=== PATIENT | male | born 1955 | race African-American/Black ===

== ENCOUNTER 2020-10-10 05:03 | Inpatient (IN) | payer MEDICARE, MEDICAID ==
[2020-10-10] MEDS ORDERED: Aspirin 81 mg Enteric Coated Tablet PO SCH (06:00)
[2020-10-10] MEDS: Lactated Ringer's 1,000 ML IV SCH ×3 (06:23→21:17)
[2020-10-10 06:37] LABS: #Neutrophils 12.5 10x3/uL (1.5-8.4); %Basophils 0.1 % (0.0-2.0); %Eosinophils 0.1 % (0.0-6.0); %Lymphocytes 12.3 % (18.0-47.0); %Monocytes 6.4 % (0.0-10.0); %Neutrophils 80.7 % (40.0-75.0); Hemoglobin 12.2 g/dL (13.5-17.5); Mean Corpuscular HGB CONC 31.4 g/dL (32.0-36.0); Mean Corpuscular Hemoglobin 27.9 pg (27.0-33.0); Mean Corpuscular Volume 88.8 fl (81.2-95.1); Mean Platelet Volume 9.1 fl (7.4-10.4); Platelet Count 337 10x3/uL (150-450); RBC Distribution Width 13.3 % (11.5-14.5); Red Blood Cell (RBC) Count 4.38 10x6/uL (4.32-5.72); White Blood Cell (WBC) Count 15.6 10x3/uL (3.5-10.5)
[2020-10-10 06:53] LABS: Anion Gap 17 mmol/L (10-20); BUN (Urea Nitrogen) 19 mg/dL (8.4-25.7); Calc. Creatinine Clearance 100 mL/min (70-130); Calcium 8.5 mg/dL (7.8-10.44); Carbon Dioxide 25 mmol/L (23-31); Chloride 104 mmol/L (98-107); Glucose 95 mg/dL (80-115); Magnesium 1.5 mg/dL (1.6-2.6); Potassium 4.4 mmol/L (3.5-5.1); Sodium 142 mmol/L (136-145)
[2020-10-10 09:24] LABS: Lactic Acid 2.3 mmol/L (0.5-2.2)
[2020-10-10] MEDS: Famotidine/PF 20 mg/2ml Vial SLOW IVP SCH ×2 (10:09→20:41)
[2020-10-10] MEDS: Famotidine 20 MG TAB PO SCH ×2 (10:09→20:33)
[2020-10-10] MEDS: Losartan 25 MG TAB PO SCH (10:09)
[2020-10-10] MEDS: Amlodipine 10 MG TAB PO SCH (10:09)
[2020-10-10] MEDS: Enoxaparin Sodium 40 MG/0.4 ML SYRINGE SC SCH (10:09)
[2020-10-10] MEDS: Docusate Sodium 100 MG/10 ML UDCUP PO SCH ×2 (10:09→20:36)
[2020-10-10] MEDS: Clopidogrel Bisulfate 75 MG TAB PO SCH (10:09)
[2020-10-10] MEDS: Potassium Chloride 10 MEQ TAB PO SCH ×2 (10:09→17:20)
[2020-10-10] MEDS: Baclofen 10 MG TAB PO SCH ×3 (10:09→20:32)
[2020-10-10] MEDS: Oxybutynin 5 MG TAB PO SCH (10:10)
[2020-10-10] MEDS: Multivit, Therapeutic 1 TAB PO SCH (10:10)
[2020-10-10 12:42] LABS: Bilirubin Neg (Negative); Blood, Urine 150 (Negative); Clarity Cloudy (Clear); Glucose, Urine (Dipstick) Normal (Negative); Ketone, Urine Negative (Negative); Leukocyte 500 (Negative); Nitrite Negative (Negative); Protein, Urine (Dipstick) 30 mg/dl (Neg-Trace); Urobilinogen Normal mg/dL (Less than 2)
[2020-10-10 13:31] LABS: WBC/HPF 21-50 HPF (0-3)
[2020-10-10 13:33] LABS: Bacteria/HPF 3+ HPF (None Seen); Squamous Epithelial None Seen HPF (0-3)
[2020-10-10 13:36] LABS: Triple Phosphate Crystal 2+ HPF (None Seen)
[2020-10-10 13:40] LABS: Urine Culture Reflex Yes Yes
[2020-10-10] MEDS ORDERED: Cefepime 2 GM VIAL ONE (14:10)
[2020-10-10] MEDS: Cefepime 2 GM in Sodium Chloride 0.9% 100 ML IVPB SCH ×2 (14:12→23:10)
[2020-10-10] MEDS: VANCOMYCIN 1.25 GM/250 ML BAG 1.25 GM in Premix Bag 1 BAG IVPB SCH (17:00)
[2020-10-10] MEDS: Atorvastatin Calcium 40 MG TAB PO SCH (20:32)
[2020-10-10] MEDS: Latanoprost 0.005% Ophth Soln 2.5 ml Bottle EA EYE SCH (20:33)
[2020-10-10] MEDS ORDERED: FLU VACC QS2020-21(65YR UP)/PF 240 MCG/0.7 ML SYRINGE IM ONE (21:00)
[2020-10-10 21:27] LABS: Lactic Acid 1.1 mmol/L (0.5-2.2)
[2020-10-10] MEDS: Acetaminophen 325 MG TAB PO PRN (22:19)
[2020-10-11 01:23] LABS: Lactic Acid 0.9 mmol/L (0.5-2.2)
[2020-10-11] MEDS: VANCOMYCIN 1.25 GM/250 ML BAG 1.25 GM in Premix Bag 1 BAG IVPB SCH ×2 (03:32→18:06)
[2020-10-11] MEDS: Lactated Ringer's 1,000 ML IV SCH ×2 (03:33→15:12)
[2020-10-11 05:35] LABS: Lactic Acid 0.8 mmol/L (0.5-2.2)
[2020-10-11] MEDS: Cefepime 2 GM in Sodium Chloride 0.9% 100 ML IVPB SCH ×3 (06:41→22:43)
[2020-10-11 08:36] LABS: #Eosinphils 0.4 10x3/uL (0.0-0.5); #Neutrophils 6.7 10x3/uL (1.5-8.4); %Basophils 0.1 % (0.0-2.0); %Eosinophils 3.7 % (0.0-6.0); %Lymphocytes 30.2 % (18.0-47.0); %Monocytes 8.7 % (0.0-10.0); Hemoglobin 10.7 g/dL (13.5-17.5); Mean Corpuscular HGB CONC 31.5 g/dL (32.0-36.0); Mean Corpuscular Hemoglobin 28.6 pg (27.0-33.0); Mean Corpuscular Volume 90.9 fl (81.2-95.1); Mean Platelet Volume 8.9 fl (7.4-10.4); Platelet Count 231 10x3/uL (150-450); RBC Distribution Width 13.7 % (11.5-14.5); Red Blood Cell (RBC) Count 3.74 10x6/uL (4.32-5.72); White Blood Cell (WBC) Count 11.7 10x3/uL (3.5-10.5)
[2020-10-11 08:44] LABS: Anion Gap 11 mmol/L (10-20); BUN (Urea Nitrogen) 16 mg/dL (8.4-25.7); Calc. Creatinine Clearance 108 mL/min (70-130); Calcium 8.2 mg/dL (7.8-10.44); Carbon Dioxide 25 mmol/L (23-31); Chloride 108 mmol/L (98-107); Glucose 89 mg/dL (80-115); Magnesium 1.5 mg/dL (1.6-2.6); Phosphorus 2.1 mg/dL (2.3-4.7); Potassium 3.9 mmol/L (3.5-5.1); Sodium 140 mmol/L (136-145)
[2020-10-11 09:19] LABS: Lactic Acid 0.9 mmol/L (0.5-2.2)
[2020-10-11] MEDS: Clopidogrel Bisulfate 75 MG TAB PO SCH (09:48)
[2020-10-11] MEDS: Oxybutynin 5 MG TAB PO SCH (09:48)
[2020-10-11] MEDS: Baclofen 10 MG TAB PO SCH ×3 (09:48→21:42)
[2020-10-11] MEDS: Potassium Chloride 10 MEQ TAB PO SCH ×2 (09:48→18:06)
[2020-10-11] MEDS: Famotidine 20 MG TAB PO SCH ×2 (09:48→21:42)
[2020-10-11] MEDS: Docusate Sodium 100 MG/10 ML UDCUP PO SCH ×2 (09:49→22:43)
[2020-10-11] MEDS: Amlodipine 10 MG TAB PO SCH (09:49)
[2020-10-11] MEDS: Multivit, Therapeutic 1 TAB PO SCH (09:49)
[2020-10-11] MEDS: Losartan 25 MG TAB PO SCH (09:49)
[2020-10-11] MEDS: Famotidine/PF 20 mg/2ml Vial SLOW IVP SCH ×2 (09:50→22:43)
[2020-10-11] MEDS: Enoxaparin Sodium 40 MG/0.4 ML SYRINGE SC SCH (09:50)
[2020-10-11] MEDS ORDERED: Magnesium 2 GM/50 ML 2 GM in Premix Bag 1 BAG IVPB SCH (14:30)
[2020-10-11] MEDS ORDERED: Potassium Phosphate 30 MMOL in Sodium Chloride 0.9% 250 ML 250 ML IVPB SCH (15:00)
[2020-10-11 15:21] LABS: Vancomycin, Trough 17.5 ug/mL
[2020-10-11] MEDS: Atorvastatin Calcium 40 MG TAB PO SCH (21:42)
[2020-10-11] MEDS: Latanoprost 0.005% Ophth Soln 2.5 ml Bottle EA EYE SCH (22:42)
[2020-10-12] MEDS: Lactated Ringer's 1,000 ML IV SCH ×3 (03:49→14:36)
[2020-10-12] MEDS: VANCOMYCIN 1.25 GM/250 ML BAG 1.25 GM in Premix Bag 1 BAG IVPB SCH ×2 (03:53→16:23)
[2020-10-12] MEDS: Cefepime 2 GM in Sodium Chloride 0.9% 100 ML IVPB SCH ×2 (06:50→15:23)
[2020-10-12] MEDS: Losartan 25 MG TAB PO SCH (09:35)
[2020-10-12] MEDS: Amlodipine 10 MG TAB PO SCH (09:35)
[2020-10-12] MEDS: Famotidine/PF 20 mg/2ml Vial SLOW IVP SCH ×2 (09:35→18:34)
[2020-10-12] MEDS: Docusate Sodium 100 MG/10 ML UDCUP PO SCH ×2 (09:35→21:52)
[2020-10-12] MEDS: Multivit, Therapeutic 1 TAB PO SCH (09:35)
[2020-10-12] MEDS: Potassium Chloride 10 MEQ TAB PO SCH ×2 (09:35→16:23)
[2020-10-12] MEDS: Baclofen 10 MG TAB PO SCH ×3 (09:35→21:52)
[2020-10-12] MEDS: Famotidine 20 MG TAB PO SCH ×2 (09:36→21:53)
[2020-10-12] MEDS: Enoxaparin Sodium 40 MG/0.4 ML SYRINGE SC SCH (09:36)
[2020-10-12] MEDS: Oxybutynin 5 MG TAB PO SCH (09:36)
[2020-10-12] MEDS: Clopidogrel Bisulfate 75 MG TAB PO SCH (09:36)
[2020-10-12] MEDS: Atorvastatin Calcium 40 MG TAB PO SCH (21:52)
[2020-10-12] MEDS: Latanoprost 0.005% Ophth Soln 2.5 ml Bottle EA EYE SCH (21:52)
[2020-10-13] MEDS: Famotidine/PF 20 mg/2ml Vial SLOW IVP SCH ×2 (01:36→09:55)
[2020-10-13 03:31] LABS: #Eosinphils 0.4 10x3/uL (0.0-0.5); #Monocytes 0.8 10x3/uL (0.0-1.1); #Neutrophils 6.1 10x3/uL (1.5-8.4); %Basophils 0.3 % (0.0-2.0); %Lymphocytes 31.1 % (18.0-47.0); %Monocytes 7.1 % (0.0-10.0); %Neutrophils 57.2 % (40.0-75.0); Hemoglobin 10.7 g/dL (13.5-17.5); Mean Corpuscular HGB CONC 31.9 g/dL (32.0-36.0); Mean Corpuscular Hemoglobin 28.1 pg (27.0-33.0); Mean Corpuscular Volume 87.9 fl (81.2-95.1); Mean Platelet Volume 9.2 fl (7.4-10.4); Platelet Count 262 10x3/uL (150-450); RBC Distribution Width 13.1 % (11.5-14.5); Red Blood Cell (RBC) Count 3.81 10x6/uL (4.32-5.72); White Blood Cell (WBC) Count 10.6 10x3/uL (3.5-10.5)
[2020-10-13 03:35] LABS: Vancomycin, Trough 20.6 ug/mL
[2020-10-13 03:38] LABS: ALT (SGPT) 10 U/L (8-55); AST (SGOT) 11 U/L (5-34); Albumin 3.6 g/dL (3.4-4.8); Alkaline Phosphatase 63 U/L (40-110); Anion Gap 12 mmol/L (10-20); BUN (Urea Nitrogen) 10 mg/dL (8.4-25.7); Bilirubin, Total 0.4 mg/dL (0.2-1.2); Calc. Creatinine Clearance 124 mL/min (70-130); Calcium 8.8 mg/dL (7.8-10.44); Carbon Dioxide 25 mmol/L (23-31); Chloride 107 mmol/L (98-107); Globulin 3.3 g/dL (2.4-3.5); Glucose 92 mg/dL (80-115); Magnesium 1.7 mg/dL (1.6-2.6); Potassium 4.2 mmol/L (3.5-5.1); Protein, Total 6.9 g/dL (5.8-8.1); Sodium 140 mmol/L (136-145)
[2020-10-13] MEDS: Cefepime 2 GM in Sodium Chloride 0.9% 100 ML IVPB SCH ×3 (04:45→12:39)
[2020-10-13] MEDS: VANCOMYCIN 1.25 GM/250 ML BAG 1.25 GM in Premix Bag 1 BAG IVPB SCH (04:52)
[2020-10-13] MEDS: Lactated Ringer's 1,000 ML IV SCH ×4 (06:14→17:02)
[2020-10-13] MEDS: Multivit, Therapeutic 1 TAB PO SCH (09:44)
[2020-10-13] MEDS: Baclofen 10 MG TAB PO SCH ×3 (09:44→21:21)
[2020-10-13] MEDS: Potassium Chloride 10 MEQ TAB PO SCH ×2 (09:44→18:13)
[2020-10-13] MEDS: Oxybutynin 5 MG TAB PO SCH (09:44)
[2020-10-13] MEDS: Famotidine 20 MG TAB PO SCH ×2 (09:45→21:21)
[2020-10-13] MEDS: Enoxaparin Sodium 40 MG/0.4 ML SYRINGE SC SCH (09:54)
[2020-10-13] MEDS: Clopidogrel Bisulfate 75 MG TAB PO SCH (09:54)
[2020-10-13] MEDS: Docusate Sodium 100 MG/10 ML UDCUP PO SCH ×2 (10:11→21:24)
[2020-10-13] MEDS: Amlodipine 10 MG TAB PO SCH (13:02)
[2020-10-13] MEDS: Losartan 25 MG TAB PO SCH (13:02)
[2020-10-13] MEDS: Vancomycin HCl 1 GM in Sodium Chloride 0.9% 250 ML 250 ML IVPB SCH (17:02)
[2020-10-13] MEDS: Atorvastatin Calcium 40 MG TAB PO SCH (21:20)
[2020-10-13] MEDS: Apixaban 5 MG TAB PO SCH (21:21)
[2020-10-13] MEDS: Metoprolol Tartrate 25 MG TAB PO SCH (21:23)
[2020-10-13] MEDS: Latanoprost 0.005% Ophth Soln 2.5 ml Bottle EA EYE SCH (21:24)
[2020-10-14] MEDS: Famotidine/PF 20 mg/2ml Vial SLOW IVP SCH ×3 (00:54→20:51)
[2020-10-14] MEDS: Cefepime 2 GM in Sodium Chloride 0.9% 100 ML IVPB SCH ×4 (00:56→20:45)
[2020-10-14] MEDS: Lactated Ringer's 1,000 ML IV SCH ×4 (00:57→20:51)
[2020-10-14] MEDS: Vancomycin HCl 1 GM in Sodium Chloride 0.9% 250 ML 250 ML IVPB SCH ×2 (05:21→15:52)
[2020-10-14 06:39] LABS: BUN (Urea Nitrogen) 7 mg/dL (8.4-25.7); Calc. Creatinine Clearance 133 mL/min (70-130)
[2020-10-14] MEDS: Docusate Sodium 100 MG/10 ML UDCUP PO SCH ×2 (08:43→20:50)
[2020-10-14] MEDS: Amlodipine 10 MG TAB PO SCH (08:43)
[2020-10-14] MEDS: Metoprolol Tartrate 25 MG TAB PO SCH ×2 (08:44→20:48)
[2020-10-14] MEDS: Baclofen 10 MG TAB PO SCH ×3 (08:44→20:46)
[2020-10-14] MEDS: Apixaban 5 MG TAB PO SCH ×2 (08:44→20:48)
[2020-10-14] MEDS: Oxybutynin 5 MG TAB PO SCH (08:44)
[2020-10-14] MEDS: Aspirin 81 mg Enteric Coated Tablet PO SCH (08:44)
[2020-10-14] MEDS: Famotidine 20 MG TAB PO SCH ×2 (08:45→20:46)
[2020-10-14] MEDS: Multivit, Therapeutic 1 TAB PO SCH (08:45)
[2020-10-14] MEDS: Losartan 25 MG TAB PO SCH (08:45)
[2020-10-14] MEDS: Potassium Chloride 10 MEQ TAB PO SCH ×2 (08:45→17:54)
[2020-10-14 11:52] VITALS: BMI 29.0
[2020-10-14] MEDS: Atorvastatin Calcium 40 MG TAB PO SCH (20:48)
[2020-10-14] MEDS: Latanoprost 0.005% Ophth Soln 2.5 ml Bottle EA EYE SCH (20:50)
[2020-10-15] MEDS: Cefepime 2 GM in Sodium Chloride 0.9% 100 ML IVPB SCH ×3 (04:44→20:22)
[2020-10-15] MEDS: Vancomycin HCl 1 GM in Sodium Chloride 0.9% 250 ML 250 ML IVPB SCH ×2 (04:44→18:14)
[2020-10-15] MEDS: Aspirin 81 mg Enteric Coated Tablet PO SCH (08:25)
[2020-10-15] MEDS: Famotidine 20 MG TAB PO SCH ×2 (08:25→21:15)
[2020-10-15] MEDS: Metoprolol Tartrate 25 MG TAB PO SCH ×2 (08:25→21:16)
[2020-10-15] MEDS: Baclofen 10 MG TAB PO SCH ×3 (08:25→21:15)
[2020-10-15] MEDS: Docusate Sodium 100 MG/10 ML UDCUP PO SCH ×2 (08:26→21:17)
[2020-10-15] MEDS: Oxybutynin 5 MG TAB PO SCH (08:26)
[2020-10-15] MEDS: Amlodipine 10 MG TAB PO SCH (08:26)
[2020-10-15] MEDS: Apixaban 5 MG TAB PO SCH ×2 (08:26→21:15)
[2020-10-15] MEDS: Multivit, Therapeutic 1 TAB PO SCH (08:26)
[2020-10-15] MEDS: Losartan 25 MG TAB PO SCH (08:26)
[2020-10-15] MEDS: Famotidine/PF 20 mg/2ml Vial SLOW IVP SCH ×2 (08:27→21:19)
[2020-10-15] MEDS: Potassium Chloride 10 MEQ TAB PO SCH ×2 (08:27→18:15)
[2020-10-15] MEDS ORDERED: Lidocaine 1% PF 5 ML VIAL ONE (14:37)
[2020-10-15] MEDS ORDERED: Sodium Bicarbonate 2.5 MEQ/5 ML VIAL ONE (14:38)
[2020-10-15 17:03] LABS: Vancomycin, Trough 21.3 ug/mL
[2020-10-15] MEDS: Lactated Ringer's 1,000 ML IV SCH ×3 (18:13→22:24)
[2020-10-15] MEDS: Atorvastatin Calcium 40 MG TAB PO SCH (21:16)
[2020-10-15] MEDS: Latanoprost 0.005% Ophth Soln 2.5 ml Bottle EA EYE SCH (22:24)
[2020-10-16 04:33] LABS: #Eosinphils 0.3 10x3/uL (0.0-0.5); #Monocytes 0.9 10x3/uL (0.0-1.1); #Neutrophils 5.7 10x3/uL (1.5-8.4); %Basophils 0.4 % (0.0-2.0); %Eosinophils 3.1 % (0.0-6.0); %Lymphocytes 33.4 % (18.0-47.0); %Monocytes 8.5 % (0.0-10.0); Hemoglobin 10.6 g/dL (13.5-17.5); Mean Corpuscular HGB CONC 32.3 g/dL (32.0-36.0); Mean Corpuscular Volume 86.5 fl (81.2-95.1); Mean Platelet Volume 9.2 fl (7.4-10.4); Platelet Count 283 10x3/uL (150-450); RBC Distribution Width 13.1 % (11.5-14.5); Red Blood Cell (RBC) Count 3.79 10x6/uL (4.32-5.72); White Blood Cell (WBC) Count 10.5 10x3/uL (3.5-10.5)
[2020-10-16 04:41] LABS: Anion Gap 12 mmol/L (10-20); BUN (Urea Nitrogen) 8 mg/dL (8.4-25.7); Calc. Creatinine Clearance 124 mL/min (70-130); Calcium 8.3 mg/dL (7.8-10.44); Carbon Dioxide 28 mmol/L (23-31); Chloride 106 mmol/L (98-107); Glucose 89 mg/dL (80-115); Potassium 3.9 mmol/L (3.5-5.1); Sodium 142 mmol/L (136-145)
[2020-10-16] MEDS: Cefepime 2 GM in Sodium Chloride 0.9% 100 ML IVPB SCH ×3 (04:41→21:00)
[2020-10-16] MEDS: Aspirin 81 mg Enteric Coated Tablet PO SCH (10:29)
[2020-10-16] MEDS: Metoprolol Tartrate 25 MG TAB PO SCH ×2 (10:29→20:59)
[2020-10-16] MEDS: Docusate Sodium 100 MG/10 ML UDCUP PO SCH ×2 (10:30→21:00)
[2020-10-16] MEDS: Oxybutynin 5 MG TAB PO SCH (10:30)
[2020-10-16] MEDS: Amlodipine 10 MG TAB PO SCH (10:30)
[2020-10-16] MEDS: Potassium Chloride 10 MEQ TAB PO SCH ×2 (10:30→18:26)
[2020-10-16] MEDS: Baclofen 10 MG TAB PO SCH ×3 (10:31→20:59)
[2020-10-16] MEDS: Apixaban 5 MG TAB PO SCH ×2 (10:31→20:59)
[2020-10-16] MEDS: Multivit, Therapeutic 1 TAB PO SCH (10:31)
[2020-10-16] MEDS: Losartan 25 MG TAB PO SCH (10:31)
[2020-10-16] MEDS: Famotidine/PF 20 mg/2ml Vial SLOW IVP SCH ×2 (10:31→20:59)
[2020-10-16] MEDS: Vancomycin HCl 750 MG in Sodium Chloride 0.9% 250 ML 250 ML IVPB SCH ×2 (10:32→21:01)
[2020-10-16] MEDS: Lactated Ringer's 1,000 ML IV SCH (11:05)
[2020-10-16] MEDS ORDERED: Sodium Chloride 0.9% 250 ML 250 ML ONE (20:57)
[2020-10-16] MEDS: Atorvastatin Calcium 40 MG TAB PO SCH (21:00)
[2020-10-16] MEDS: Latanoprost 0.005% Ophth Soln 2.5 ml Bottle EA EYE SCH (21:01)
[2020-10-17] MEDS: Cefepime 2 GM in Sodium Chloride 0.9% 100 ML IVPB SCH ×3 (03:07→20:40)
[2020-10-17] MEDS ORDERED: Sodium Chloride 0.9% 250 ML 250 ML ONE (10:16)
[2020-10-17] MEDS: Multivit, Therapeutic 1 TAB PO SCH (10:51)
[2020-10-17] MEDS: Apixaban 5 MG TAB PO SCH ×2 (10:51→20:40)
[2020-10-17] MEDS: Baclofen 10 MG TAB PO SCH ×3 (10:51→20:40)
[2020-10-17] MEDS: Aspirin 81 mg Enteric Coated Tablet PO SCH (10:51)
[2020-10-17] MEDS: Famotidine/PF 20 mg/2ml Vial SLOW IVP SCH ×2 (10:52→20:40)
[2020-10-17] MEDS: Amlodipine 10 MG TAB PO SCH (10:52)
[2020-10-17] MEDS: Oxybutynin 5 MG TAB PO SCH (10:52)
[2020-10-17] MEDS: Potassium Chloride 10 MEQ TAB PO SCH ×2 (10:52→16:05)
[2020-10-17] MEDS: Metoprolol Tartrate 25 MG TAB PO SCH ×2 (10:52→20:40)
[2020-10-17] MEDS: Losartan 25 MG TAB PO SCH (10:52)
[2020-10-17] MEDS: Docusate Sodium 100 MG/10 ML UDCUP PO SCH ×2 (10:53→20:41)
[2020-10-17] MEDS: Vancomycin HCl 750 MG in Sodium Chloride 0.9% 250 ML 250 ML IVPB SCH ×3 (11:13→22:10)
[2020-10-17] MEDS: Acetaminophen 325 MG TAB PO PRN (16:05)
[2020-10-17] MEDS: Atorvastatin Calcium 40 MG TAB PO SCH (20:40)
[2020-10-17] MEDS: Latanoprost 0.005% Ophth Soln 2.5 ml Bottle EA EYE SCH (20:41)
[2020-10-18] MEDS: Cefepime 2 GM in Sodium Chloride 0.9% 100 ML IVPB SCH ×2 (04:55→12:00)
[2020-10-18 08:42] VITALS: BP 163/83; TEMP 98.4
[2020-10-18] MEDS: Oxybutynin 5 MG TAB PO SCH (09:00)
[2020-10-18] MEDS: Aspirin 81 mg Enteric Coated Tablet PO SCH (09:00)
[2020-10-18] MEDS: Docusate Sodium 100 MG/10 ML UDCUP PO SCH (10:30)
[2020-10-18] MEDS: Losartan 25 MG TAB PO SCH (10:31)
[2020-10-18] MEDS: Vancomycin HCl 750 MG in Sodium Chloride 0.9% 250 ML 250 ML IVPB SCH ×2 (10:31→11:00)
[2020-10-18] MEDS: Multivit, Therapeutic 1 TAB PO SCH (10:32)
[2020-10-18] MEDS: Famotidine/PF 20 mg/2ml Vial SLOW IVP SCH (10:32)
[2020-10-18] MEDS: Metoprolol Tartrate 25 MG TAB PO SCH (10:32)
[2020-10-18] MEDS: Amlodipine 10 MG TAB PO SCH (10:32)
[2020-10-18] MEDS: Potassium Chloride 10 MEQ TAB PO SCH (10:32)
[2020-10-18] MEDS: Apixaban 5 MG TAB PO SCH (10:33)
[2020-10-18] MEDS: Baclofen 10 MG TAB PO SCH ×2 (10:33→15:59)
[2020-10-18] MEDS ORDERED: Vancomycin HCl 1 GM in Sodium Chloride 0.9% 250 ML 250 ML IVPB SCH (12:30)
[2020-10-18 13:05] LABS: #Eosinphils 0.3 10x3/uL (0.0-0.5); #Monocytes 0.7 10x3/uL (0.0-1.1); #Neutrophils 5.3 10x3/uL (1.5-8.4); %Basophils 0.4 % (0.0-2.0); %Eosinophils 3.3 % (0.0-6.0); %Lymphocytes 31.9 % (18.0-47.0); %Monocytes 7.8 % (0.0-10.0); %Neutrophils 56.3 % (40.0-75.0); Hemoglobin 11.1 g/dL (13.5-17.5); Mean Corpuscular HGB CONC 32.2 g/dL (32.0-36.0); Mean Corpuscular Hemoglobin 28.1 pg (27.0-33.0); Mean Corpuscular Volume 87.3 fl (81.2-95.1); Mean Platelet Volume 8.9 fl (7.4-10.4); Platelet Count 316 10x3/uL (150-450); RBC Distribution Width 13.2 % (11.5-14.5); Red Blood Cell (RBC) Count 3.95 10x6/uL (4.32-5.72); White Blood Cell (WBC) Count 9.4 10x3/uL (3.5-10.5)
== END 2020-10-18 15:40 | DRG 698 ==
LOC: CSHTELE 05:03
PROVIDERS: ADMIT Family Medicine; ATTEND Hospitalist
PROC: 02HV33Z Insertion of Infusion Device into Superior Vena Cava, Percutaneous Approach (ICD-10-PCS; principal; 2020-10-15)
PROC: B548ZZA Ultrasonography of Superior Vena Cava, Guidance (ICD-10-PCS; 2020-10-15)
DX: T83.510A Infection and inflammatory reaction due to cystostomy catheter, initial encounter (principal); R53.2 Functional quadriplegia; A41.81 Sepsis due to Enterococcus; R65.20 Severe sepsis without septic shock; A41.51 Sepsis due to Escherichia coli [E. coli]; N39.0 Urinary tract infection, site not specified; I69.351 Hemiplegia and hemiparesis following cerebral infarction affecting right dominant side; K21.9 Gastro-esophageal reflux disease without esophagitis; E78.5 Hyperlipidemia, unspecified; I10 Essential (primary) hypertension; I69.320 Aphasia following cerebral infarction; N31.9 Neuromuscular dysfunction of bladder, unspecified; Z74.01 Bed confinement status; N40.0 Benign prostatic hyperplasia without lower urinary tract symptoms; E83.42 Hypomagnesemia; E83.39 Other disorders of phosphorus metabolism; Z88.2 Allergy status to sulfonamides; Z88.8 Allergy status to other drugs, medicaments and biological substances; Z79.01 Long term (current) use of anticoagulants; Z79.82 Long term (current) use of aspirin; Z79.899 Other long term (current) drug therapy; I48.0 Paroxysmal atrial fibrillation
CPT/HCPCS: 36415; 36569; 71045; 80048; 80053; 80202; 82565; 83605; 83735; 84100; 84145; 84520; 85025; 87077; 87086; 87186; 93005; 93010; 93306; 94760; C1751; J0692; J1650; J3370; J3475; J3490; J7050; J7120; S0028

== ENCOUNTER 2021-02-24 20:56 | Emergency (ER) | payer MEDICARE, MEDICAID ==
[2021-02-24 21:51] LABS: Bilirubin Neg (Negative); Blood, Urine 250 (Negative); Clarity Clear (Clear); Glucose, Urine (Dipstick) Normal (Negative); Ketone, Urine Negative (Negative); Leukocyte 500 (Negative); Nitrite Negative (Negative); Protein, Urine (Dipstick) 30 mg/dl (Neg-Trace); Specific Gravity, Urine 1.005 (1.002-1.036); Urobilinogen Normal mg/dL (Less than 2); pH, Urine 6.5 (5.0-9.0)
[2021-02-24 22:04] LABS: Bacteria/HPF 1+ HPF (None Seen); WBC/HPF 21-50 HPF (0-3)
[2021-02-24 22:37] LABS: #Eosinphils 0.1 10x3/uL (0.0-0.5); #Monocytes 1.3 10x3/uL (0.0-1.1); #Neutrophils 14.3 10x3/uL (1.5-8.4); %Basophils 0.2 % (0.0-2.0); %Eosinophils 0.4 % (0.0-6.0); %Lymphocytes 16.7 % (18.0-47.0); %Monocytes 6.6 % (0.0-10.0); %Neutrophils 75.7 % (40.0-75.0); Hemoglobin 12.4 g/dL (13.5-17.5); Mean Corpuscular HGB CONC 32.7 g/dL (32.0-36.0); Mean Corpuscular Hemoglobin 28.6 pg (27.0-33.0); Mean Corpuscular Volume 87.5 fl (81.2-95.1); Mean Platelet Volume 9.1 fl (7.4-10.4); Platelet Count 355 10x3/uL (150-450); RBC Distribution Width 13.4 % (11.5-14.5); Red Blood Cell (RBC) Count 4.33 10x6/uL (4.32-5.72); White Blood Cell (WBC) Count 18.8 10x3/uL (3.5-10.5)
[2021-02-24 22:45] LABS: ALT (SGPT) 15 U/L (8-55); AST (SGOT) 21 U/L (5-34); Albumin 4.1 g/dL (3.4-4.8); Alkaline Phosphatase 85 U/L (40-110); Anion Gap 14 mmol/L (10-20); BUN (Urea Nitrogen) 20 mg/dL (8.4-25.7); Bilirubin, Total 0.3 mg/dL (0.2-1.2); Calc. Creatinine Clearance 0 mL/min (70-130); Calcium 9.6 mg/dL (7.8-10.44); Carbon Dioxide 26 mmol/L (23-31); Chloride 103 mmol/L (98-107); Globulin 3.8 g/dL (2.4-3.5); Glucose 104 mg/dL (80-115); Potassium 4.2 mmol/L (3.5-5.1); Protein, Total 7.9 g/dL (5.8-8.1); Sodium 139 mmol/L (136-145)
[2021-02-24] MEDS ORDERED: cefTRIAXone\\ROCEPHIN 1 GM VIAL ONE (23:03)
== END 2021-02-25 02:31 | disposition home or self-care (01) ==
LOC: CSHERS 20:56
DX: N39.0 Urinary tract infection, site not specified (principal); E78.5 Hyperlipidemia, unspecified; I10 Essential (primary) hypertension; K21.9 Gastro-esophageal reflux disease without esophagitis
CPT/HCPCS: 71045; 80053; 81003; 81015; 83605; 85025; 87077; 87086; 87186; 93005; 96365; J0696

== ENCOUNTER 2021-12-27 08:09 | Inpatient (IN) | payer MEDICARE, MEDICAID ==
[2021-12-27] MEDS ORDERED: Fentanyl 100 MCG/2 ML VIAL ONE (08:32)
[2021-12-27] MEDS ORDERED: Cefepime 2 GM VIAL ONE (08:51)
[2021-12-27] MEDS ORDERED: Vancomycin HCl 500 MG VIAL ONE (08:52)
[2021-12-27 09:15] LABS: Base Excess (BEa) -0.7 mEq/L (-2.0 to +3.0); CO2 Tension 39.8 mmHg (35.0-45.0); O2 Tension (PaO2), arterial 167.2 mmHg (> 80.0); Potassium - ABG Lab 3.6 mmol/L (3.70-5.30); Puncture Site LRA
[2021-12-27 09:21] LABS: Hemoglobin 11.2 g/dL (13.5-17.5); Mean Corpuscular Hemoglobin 27.8 pg (27.0-33.0); Mean Corpuscular Volume 89.6 fl (81.2-95.1); Mean Platelet Volume 9.3 fl (7.4-10.4); Platelet Count 294 10x3/uL (150-450); RBC Distribution Width 12.9 % (11.5-14.5); Red Blood Cell (RBC) Count 4.03 10x6/uL (4.32-5.72); White Blood Cell (WBC) Count 14.9 10x3/uL (3.5-10.5)
[2021-12-27 09:33] LABS: ALT (SGPT) 19 U/L (8-55); AST (SGOT) 23 U/L (5-34); Alkaline Phosphatase 73 U/L (40-110); Anion Gap 19 mmol/L (10-20); BUN (Urea Nitrogen) 22 mg/dL (8.4-25.7); Bilirubin, Total 0.5 mg/dL (0.2-1.2); Calc. Creatinine Clearance 0 mL/min (70-130); Calcium 8.4 mg/dL (7.8-10.44); Carbon Dioxide 23 mmol/L (23-31); Chloride 106 mmol/L (98-107); Globulin 3.2 g/dL (2.4-3.5); Glucose 113 mg/dL (80-115); Potassium 4.2 mmol/L (3.5-5.1); Protein, Total 7.2 g/dL (5.8-8.1); Sodium 144 mmol/L (136-145)
[2021-12-27 09:38] LABS: D-Dimer Test 5.54 mg/L FEU (0.19-0.50); INR-International Normal Ratio 0.9; PTT 24.9 sec (22.0-33.0); Prothrombin Time 10.3 sec (9.5-12.1)
[2021-12-27 10:12] LABS: SARS-CoV-2 NAA Rapid Test Not Detected (NotDetected)
[2021-12-27] MEDS ORDERED: Propofol 1,000 MG/100 ML VIAL IV PRN ×2 (10:47→11:00)
[2021-12-27] MEDS ORDERED: Propofol BOLUS 1,000 MG/100 ML VIAL IV PRN (11:00)
[2021-12-27] MEDS ORDERED: fentaNYL Citrate-0.9 % NaCl/PF 100 ML IVPB SCH (11:00)
[2021-12-27] MEDS ORDERED: Ventilator Sedation Protocol 1 EACH FS PRN (11:00)
[2021-12-27] MEDS ORDERED: Lorazepam 2 MG/ML VIAL SLOW IVP PRN (11:00)
[2021-12-27] MEDS ORDERED: Morphine 2 MG/ML VIAL SLOW IVP PRN (11:00)
[2021-12-27] MEDS ORDERED: Fentanyl BOLUS 250 ML IVPB PRN (11:00)
[2021-12-27] MEDS ORDERED: DISCONTINUE PREVIOUS NARCOTIC PAIN MEDICATIONS AND BENZODIAZEPINES FS SCH (11:00)
[2021-12-27 11:07] VITALS: BMI 35.7
[2021-12-27 11:09] LABS: Band 1 % (5-11); Lymphocytes 4 % (21-51); MDiff Complete? YES; Monocytes 6 % (0-10); Neutrophil 89 % (42-75); Platelet Morphology Comment Appears Adequate; RBC Morphology Normal
[2021-12-27] MEDS ORDERED: hydrALAZINE 20 MG/ML VIAL SLOW IVP PRN (11:12)
[2021-12-27] MEDS: Sodium Chloride 0.9% 1,000 ML IV SCH ×2 (11:47→23:00)
[2021-12-27 12:19] LABS: Lactic Acid 2.1 mmol/L (0.5-2.2)
[2021-12-27 15:34] LABS: Bilirubin Neg (Negative); Blood, Urine 150 (Negative); Clarity Cloudy (Clear); Glucose, Urine (Dipstick) Normal (Negative); Ketone, Urine Negative (Negative); Leukocyte 500 (Negative); Nitrite Negative (Negative); Protein, Urine (Dipstick) 100 mg/dl (Neg-Trace); Urobilinogen Normal mg/dL (Less than 2)
[2021-12-27 15:44] LABS: Urine Culture Reflex No No
[2021-12-27 15:52] LABS: WBC/HPF Greater Than 50 HPF (0-3)
[2021-12-27 15:53] LABS: Bacteria/HPF 4+ HPF (None Seen); Squamous Epithelial 0-3 HPF (0-3)
[2021-12-27] MEDS ORDERED: Norepinephrine 8 MG/0.9% NS 250 ML ONE (16:07)
[2021-12-27] MEDS ORDERED: Norepinephrine 8 MG/0.9% NS 250 ML IVPB SCH (16:15)
[2021-12-27] MEDS ORDERED: Sodium Chloride 0.9% 500 ML IVPB SCH (16:15)
[2021-12-27] MEDS: Cefepime 1 GM in Sodium Chloride 0.9% 100 ML IVPB SCH (20:04)
[2021-12-27] MEDS: Atorvastatin Calcium 40 MG TAB PO SCH (20:04)
[2021-12-27] MEDS: VANCOMYCIN 1.25 GM/250 ML BAG 1.25 GM in Premix Bag 1 BAG IVPB SCH (20:05)
[2021-12-27] MEDS: Acetaminophen 650 MG/20.3 ML UDCUP PO PRN (20:52)
[2021-12-27] MEDS ORDERED: VANCOMYCIN 1.25 GM/250 ML BAG IVPB SCH (21:00)
[2021-12-28 05:09] LABS: ALT (SGPT) 15 U/L (8-55); AST (SGOT) 19 U/L (5-34); Albumin 2.8 g/dL (3.4-4.8); Alkaline Phosphatase 62 U/L (40-110); Anion Gap 15 mmol/L (10-20); BUN (Urea Nitrogen) 29 mg/dL (8.4-25.7); Bilirubin, Total 0.7 mg/dL (0.2-1.2); Calc. Creatinine Clearance 80 mL/min (70-130); Calcium 7.3 mg/dL (7.8-10.44); Carbon Dioxide 21 mmol/L (23-31); Chloride 112 mmol/L (98-107); Globulin 2.5 g/dL (2.4-3.5); Glucose 111 mg/dL (80-115); Magnesium 1.5 mg/dL (1.6-2.6); Phosphorus 3.4 mg/dL (2.3-4.7); Potassium 4.4 mmol/L (3.5-5.1); Protein, Total 5.3 g/dL (5.8-8.1); Sodium 144 mmol/L (136-145)
[2021-12-28 05:38] LABS: #Basophils 0.1 10x3/uL (0.0-0.2); #Eosinphils 0.1 10x3/uL (0.0-0.5); #Neutrophils 22.1 10x3/uL (1.5-8.4); %Basophils 0.2 % (0.0-2.0); %Eosinophils 0.3 % (0.0-6.0); %Lymphocytes 8.3 % (18.0-47.0); %Monocytes 3.8 % (0.0-10.0); Hemoglobin 9.5 g/dL (13.5-17.5); Mean Corpuscular HGB CONC 32.3 g/dL (32.0-36.0); Mean Corpuscular Hemoglobin 28.5 pg (27.0-33.0); Mean Corpuscular Volume 88.3 fl (81.2-95.1); Mean Platelet Volume 9.4 fl (7.4-10.4); Platelet Count 217 10x3/uL (150-450); RBC Distribution Width 13.7 % (11.5-14.5); Red Blood Cell (RBC) Count 3.33 10x6/uL (4.32-5.72); White Blood Cell (WBC) Count 25.8 10x3/uL (3.5-10.5)
[2021-12-28 06:22] LABS: Band 16 % (5-11); Lymphocytes 9 % (21-51); Monocytes 4 % (0-10)
[2021-12-28 06:23] LABS: Neutrophil 71 % (42-75); Platelet Morphology Comment Appears Adequate; RBC Morphology Normal
[2021-12-28] MEDS ORDERED: fentaNYL Citrate-0.9 % NaCl/PF 100 ML IVPB SCH (07:30)
[2021-12-28] MEDS ORDERED: Fentanyl BOLUS 250 ML IVPB PRN (07:30)
[2021-12-28] MEDS: Acetaminophen 650 MG/20.3 ML UDCUP PO PRN ×2 (07:43→19:27)
[2021-12-28] MEDS: VANCOMYCIN 1.25 GM/250 ML BAG 1.25 GM in Premix Bag 1 BAG IVPB SCH (07:43)
[2021-12-28] MEDS: Oxybutynin 5 MG TAB PO SCH (07:44)
[2021-12-28] MEDS: Clopidogrel Bisulfate 75 MG TAB PO SCH (07:45)
[2021-12-28] MEDS: Aspirin 81 mg Enteric Coated Tablet PO SCH (07:45)
[2021-12-28] MEDS: Amlodipine 10 MG TAB PO SCH (08:25)
[2021-12-28] MEDS: Losartan Potassium 50 MG TAB PO SCH (08:26)
[2021-12-28] MEDS: Cefepime 1 GM in Sodium Chloride 0.9% 100 ML IVPB SCH ×2 (08:28→21:39)
[2021-12-28 09:58] LABS: Actual Bicarbonate (HCO3a) 21.6 mEq/L (22-28); Base Excess (BEa) -3.2 mEq/L (-2.0 to +3.0); CO2 Tension 37.9 mmHg (35.0-45.0); Calcium, Ionized (arterial) 1.09 mmol/L (1.12-1.30); Carboxyhemoglobin (COHb) 0.3 gm% (0.0-3.0); Hemoglobin (Hb) 9.9 g/dL (14.0-18.0); O2 Tension (PaO2), arterial 62.1 mmHg (> 80.0); Potassium - ABG Lab 4.1 mmol/L (3.70-5.30); Puncture Site LRA; pH, Arterial 7.37 (7.35-7.45)
[2021-12-28] MEDS: Sodium Chloride 0.9% 1,000 ML IV SCH (10:01)
[2021-12-28] MEDS: Scopolamine 1.5 mg/72 hour Patch TD SCH (13:18)
[2021-12-28] MEDS ORDERED: Furosemide 40 MG/4 ML VIAL SLOW IVP SCH (14:00)
[2021-12-28 17:22] LABS: ALV-art Gradient 175.725 mmHg (0-20)
[2021-12-28 19:13] LABS: Vancomycin, Trough 23.7 ug/mL
[2021-12-28] MEDS ORDERED: VANCOMYCIN 1.25 GM/250 ML BAG 1.25 GM in Premix Bag 1 BAG IVPB SCH (20:00)
[2021-12-28] MEDS: Metoprolol Tartrate 5 MG/5 ML VIAL ONE ×2 (20:30→20:40)
[2021-12-28] MEDS ORDERED: Metoprolol Tartrate 5 MG/5 ML VIAL IVP SCH (20:45)
[2021-12-28] MEDS ORDERED: Metoprolol Tartrate 5 MG/5 ML VIAL IVP PRN (20:46)
[2021-12-28] MEDS ORDERED: Amiodarone In Dextrose 150 MG in Premix Bag 1 BAG IVPB SCH (21:00)
[2021-12-28] MEDS ORDERED: Electrolyte Replacement Protocol 1 EACH FS SCH (21:00)
[2021-12-28] MEDS ORDERED: Amiodarone 150 MG in Dextrose 5% in Water 100 ML IVPB SCH (21:00)
[2021-12-28 21:25] LABS: Phosphorus 2.4 mg/dL (2.3-4.7)
[2021-12-28 21:31] LABS: Anion Gap 16 mmol/L (10-20); BUN (Urea Nitrogen) 26 mg/dL (8.4-25.7); Calc. Creatinine Clearance 93 mL/min (70-130); Calcium 8.7 mg/dL (7.8-10.44); Carbon Dioxide 21 mmol/L (23-31); Chloride 109 mmol/L (98-107); Glucose 99 mg/dL (80-115); Magnesium 1.5 mg/dL (1.6-2.6); Potassium 3.9 mmol/L (3.5-5.1); Sodium 142 mmol/L (136-145)
[2021-12-28] MEDS: Atorvastatin Calcium 40 MG TAB PO SCH (21:39)
[2021-12-28] MEDS ORDERED: Magnesium 2 GM/50 ML(in water) 2 GM in Premix Bag 1 BAG IVPB SCH (22:00)
[2021-12-28 23:28] LABS: Actual Bicarbonate (HCO3a) 20.2 mEq/L (22-28); CO2 Tension 34.1 mmHg (35.0-45.0); Calcium, Ionized (arterial) 1.13 mmol/L (1.12-1.30); Carboxyhemoglobin (COHb) 0.1 gm% (0.0-3.0); Potassium - ABG Lab 3.7 mmol/L (3.70-5.30); Puncture Site RRA; pH, Arterial 7.39 (7.35-7.45)
[2021-12-28 23:34] LABS: ALV-art Gradient 125.535 mmHg (0-20)
[2021-12-29] MEDS: Sodium Chloride 0.9% 1,000 ML IV SCH (00:39)
[2021-12-29] MEDS ORDERED: Furosemide 40 MG/4 ML VIAL SLOW IVP SCH (00:45)
[2021-12-29 01:14] LABS: Anion Gap 16 mmol/L (10-20); BUN (Urea Nitrogen) 27 mg/dL (8.4-25.7); Calc. Creatinine Clearance 99 mL/min (70-130); Calcium 8.6 mg/dL (7.8-10.44); Carbon Dioxide 20 mmol/L (23-31); Chloride 111 mmol/L (98-107); Glucose 97 mg/dL (80-115); Magnesium 2.1 mg/dL (1.6-2.6); Sodium 143 mmol/L (136-145)
[2021-12-29] MEDS: VANCOMYCIN 1.25 GM/250 ML BAG 1.25 GM in Premix Bag 1 BAG IVPB SCH ×2 (01:40→20:35)
[2021-12-29 04:11] LABS: Mean Corpuscular HGB CONC 31.7 g/dL (32.0-36.0); Mean Corpuscular Hemoglobin 28.1 pg (27.0-33.0); Mean Corpuscular Volume 88.5 fl (81.2-95.1); Mean Platelet Volume 9.4 fl (7.4-10.4); Platelet Count 187 10x3/uL (150-450); RBC Distribution Width 13.8 % (11.5-14.5); Red Blood Cell (RBC) Count 3.56 10x6/uL (4.32-5.72); White Blood Cell (WBC) Count 22.7 10x3/uL (3.5-10.5)
[2021-12-29 04:16] LABS: BUN (Urea Nitrogen) 26 mg/dL (8.4-25.7); Sodium 143 mmol/L (136-145)
[2021-12-29 04:27] LABS: Band 14 % (5-11); Lymphocytes 7 % (21-51); Monocytes 5 % (0-10); Neutrophil 73 % (42-75); Reactive Lymphocytes 1 % (0-10)
[2021-12-29 04:28] LABS: Dohle Bodies SLIGHT; Platelet Morphology Comment Appears Adequate; Toxic Granulation SLIGHT; Vacuoles SLIGHT
[2021-12-29 05:17] LABS: Anion Gap 17 mmol/L (10-20); CRP (Inflammatory) 31.83 mg/dL (= or < 0.5); Calc. Creatinine Clearance 103 mL/min (70-130); Calcium 8.6 mg/dL (7.8-10.44); Carbon Dioxide 21 mmol/L (23-31); Chloride 109 mmol/L (98-107); Glucose 88 mg/dL (80-115); Potassium 3.8 mmol/L (3.5-5.1)
[2021-12-29 05:22] LABS: MDiff Complete? YES; Manual Diff?? YES
[2021-12-29] MEDS: Losartan Potassium 50 MG TAB PO SCH (09:12)
[2021-12-29] MEDS: Amlodipine 10 MG TAB PO SCH (09:12)
[2021-12-29] MEDS: Cefepime 1 GM in Sodium Chloride 0.9% 100 ML IVPB SCH ×2 (09:41→20:36)
[2021-12-29] MEDS: Oxybutynin 5 MG TAB PO SCH (13:24)
[2021-12-29] MEDS: Aspirin 81 mg Enteric Coated Tablet PO SCH (13:24)
[2021-12-29] MEDS: Clopidogrel Bisulfate 75 MG TAB PO SCH (13:24)
[2021-12-29] MEDS: Atorvastatin Calcium 40 MG TAB PO SCH (20:36)
[2021-12-30 03:53] LABS: #Eosinphils 0.2 10x3/uL (0.0-0.5); #Neutrophils 13.9 10x3/uL (1.5-8.4); %Basophils 0.2 % (0.0-2.0); %Eosinophils 0.9 % (0.0-6.0); %Lymphocytes 9.5 % (18.0-47.0); %Monocytes 6.1 % (0.0-10.0); %Neutrophils 81.3 % (40.0-75.0); Hemoglobin 9.5 g/dL (13.5-17.5); Mean Corpuscular HGB CONC 31.5 g/dL (32.0-36.0); Mean Corpuscular Hemoglobin 28.2 pg (27.0-33.0); Mean Corpuscular Volume 89.6 fl (81.2-95.1); Mean Platelet Volume 9.7 fl (7.4-10.4); Platelet Count 186 10x3/uL (150-450); Red Blood Cell (RBC) Count 3.37 10x6/uL (4.32-5.72); White Blood Cell (WBC) Count 17.1 10x3/uL (3.5-10.5)
[2021-12-30 04:08] LABS: Anion Gap 15 mmol/L (10-20); BUN (Urea Nitrogen) 22 mg/dL (8.4-25.7); Calc. Creatinine Clearance 148 mL/min (70-130); Calcium 8.6 mg/dL (7.8-10.44); Carbon Dioxide 24 mmol/L (23-31); Chloride 112 mmol/L (98-107); Glucose 97 mg/dL (80-115); Magnesium 1.7 mg/dL (1.6-2.6); Phosphorus 2.3 mg/dL (2.3-4.7); Sodium 147 mmol/L (136-145)
[2021-12-30] MEDS ORDERED: Magnesium 2 GM/50 ML(in water) 2 GM in Premix Bag 1 BAG IVPB SCH (04:45)
[2021-12-30] MEDS: Cefepime 1 GM in Sodium Chloride 0.9% 100 ML IVPB SCH ×2 (08:58→20:26)
[2021-12-30] MEDS: Amlodipine 10 MG TAB PO SCH (12:10)
[2021-12-30] MEDS: Aspirin 81 mg Enteric Coated Tablet PO SCH (12:10)
[2021-12-30] MEDS: Clopidogrel Bisulfate 75 MG TAB PO SCH (12:10)
[2021-12-30] MEDS: Oxybutynin 5 MG TAB PO SCH (12:11)
[2021-12-30] MEDS: Losartan Potassium 50 MG TAB PO SCH (12:11)
[2021-12-30] MEDS: Dextrose 50% Abboject 50 ML SYRINGE SLOW IVP PRN ×2 (16:15→22:26)
[2021-12-30] MEDS: Atorvastatin Calcium 40 MG TAB PO SCH (20:35)
[2021-12-30] MEDS ORDERED: cloNIDine 0.2mg/24 Hour PATCH TD SCH (20:45)
[2021-12-31] MEDS: hydrALAZINE 20 MG/ML VIAL SLOW IVP PRN (01:14)
[2021-12-31 04:21] LABS: #Eosinphils 0.1 10x3/uL (0.0-0.5); #Neutrophils 8.7 10x3/uL (1.5-8.4); %Basophils 0.3 % (0.0-2.0); %Eosinophils 0.8 % (0.0-6.0); %Lymphocytes 15.3 % (18.0-47.0); %Monocytes 8.3 % (0.0-10.0); %Neutrophils 73.6 % (40.0-75.0); Hemoglobin 9.7 g/dL (13.5-17.5); Mean Corpuscular HGB CONC 31.5 g/dL (32.0-36.0); Mean Platelet Volume 9.9 fl (7.4-10.4); Platelet Count 230 10x3/uL (150-450); RBC Distribution Width 13.8 % (11.5-14.5); Red Blood Cell (RBC) Count 3.46 10x6/uL (4.32-5.72); White Blood Cell (WBC) Count 11.8 10x3/uL (3.5-10.5)
[2021-12-31 04:27] LABS: Anion Gap 16 mmol/L (10-20); BUN (Urea Nitrogen) 17 mg/dL (8.4-25.7); Calc. Creatinine Clearance 168 mL/min (70-130); Calcium 8.6 mg/dL (7.8-10.44); Carbon Dioxide 22 mmol/L (23-31); Chloride 112 mmol/L (98-107); Glucose 84 mg/dL (80-115); Magnesium 1.7 mg/dL (1.6-2.6); Potassium 3.6 mmol/L (3.5-5.1); Sodium 146 mmol/L (136-145)
[2021-12-31] MEDS ORDERED: Magnesium 2 GM/50 ML(in water) 2 GM in Premix Bag 1 BAG IVPB SCH (04:45)
[2021-12-31] MEDS: Cefepime 1 GM in Sodium Chloride 0.9% 100 ML IVPB SCH ×2 (09:56→21:19)
[2021-12-31] MEDS: Clopidogrel Bisulfate 75 MG TAB PO SCH (12:10)
[2021-12-31] MEDS: Amlodipine 10 MG TAB PO SCH (12:10)
[2021-12-31] MEDS: Aspirin 81 mg Enteric Coated Tablet PO SCH (12:10)
[2021-12-31] MEDS: Oxybutynin 5 MG TAB PO SCH ×2 (12:11→14:42)
[2021-12-31] MEDS: Losartan Potassium 50 MG TAB PO SCH (12:11)
[2021-12-31] MEDS: Scopolamine 1.5 mg/72 hour Patch TD SCH (14:47)
[2021-12-31] MEDS: Atorvastatin Calcium 40 MG TAB PO SCH (21:19)
[2022-01-01 04:47] LABS: Anion Gap 14 mmol/L (10-20); BUN (Urea Nitrogen) 15 mg/dL (8.4-25.7); CRP (Inflammatory) 8.47 mg/dL (= or < 0.5); Calc. Creatinine Clearance 168 mL/min (70-130); Calcium 8.4 mg/dL (7.8-10.44); Carbon Dioxide 24 mmol/L (23-31); Chloride 113 mmol/L (98-107); Glucose 95 mg/dL (80-115); Magnesium 1.9 mg/dL (1.6-2.6); Potassium 3.8 mmol/L (3.5-5.1); Sodium 147 mmol/L (136-145)
[2022-01-01 05:09] LABS: #Basophils 0.1 10x3/uL (0.0-0.2); #Eosinphils 0.1 10x3/uL (0.0-0.5); #Neutrophils 8.2 10x3/uL (1.5-8.4); %Basophils 0.5 % (0.0-2.0); %Eosinophils 1.2 % (0.0-6.0); %Lymphocytes 19.1 % (18.0-47.0); %Monocytes 8.5 % (0.0-10.0); %Neutrophils 68.2 % (40.0-75.0); Hemoglobin 9.5 g/dL (13.5-17.5); Mean Corpuscular HGB CONC 31.5 g/dL (32.0-36.0); Mean Corpuscular Hemoglobin 27.8 pg (27.0-33.0); Mean Corpuscular Volume 88.3 fl (81.2-95.1); Mean Platelet Volume 9.8 fl (7.4-10.4); Platelet Count 260 10x3/uL (150-450); RBC Distribution Width 13.8 % (11.5-14.5); Red Blood Cell (RBC) Count 3.42 10x6/uL (4.32-5.72)
[2022-01-01] MEDS ORDERED: Magnesium 2 GM/50 ML(in water) 2 GM in Premix Bag 1 BAG IVPB SCH (08:00)
[2022-01-01] MEDS: Aspirin 81 mg Enteric Coated Tablet PO SCH (09:09)
[2022-01-01] MEDS: Cefepime 1 GM in Sodium Chloride 0.9% 100 ML IVPB SCH ×2 (09:09→21:12)
[2022-01-01] MEDS: Clopidogrel Bisulfate 75 MG TAB PO SCH (09:09)
[2022-01-01] MEDS: Amlodipine 10 MG TAB PO SCH (09:09)
[2022-01-01] MEDS: Oxybutynin 5 MG TAB PO SCH (09:09)
[2022-01-01] MEDS: Losartan Potassium 50 MG TAB PO SCH (09:09)
[2022-01-01 16:38] LABS: Bilirubin Neg (Negative); Blood, Urine 250 (Negative); Clarity Slightly Cloudy (Clear); Glucose, Urine (Dipstick) Normal (Negative); Ketone, Urine Negative (Negative); Leukocyte 500 (Negative); Nitrite Negative (Negative); Protein, Urine (Dipstick) 30 mg/dl (Neg-Trace)
[2022-01-01 16:45] LABS: Urine Culture Reflex No No
[2022-01-01 16:50] LABS: Bacteria/HPF Rare-Few HPF (None Seen); WBC/HPF 21-50 HPF (0-3)
[2022-01-01] MEDS: hydrALAZINE 20 MG/ML VIAL SLOW IVP PRN (18:43)
[2022-01-01] MEDS: Atorvastatin Calcium 40 MG TAB PO SCH (21:12)
[2022-01-02 05:33] LABS: #Eosinphils 0.2 10x3/uL (0.0-0.5); #Neutrophils 11.2 10x3/uL (1.5-8.4); %Basophils 0.2 % (0.0-2.0); %Eosinophils 1.2 % (0.0-6.0); %Lymphocytes 16.5 % (18.0-47.0); %Monocytes 6.3 % (0.0-10.0); %Neutrophils 73.9 % (40.0-75.0); Hemoglobin 9.2 g/dL (13.5-17.5); Mean Corpuscular HGB CONC 31.5 g/dL (32.0-36.0); Mean Corpuscular Hemoglobin 27.6 pg (27.0-33.0); Mean Corpuscular Volume 87.7 fl (81.2-95.1); Mean Platelet Volume 9.7 fl (7.4-10.4); Platelet Count 326 10x3/uL (150-450); RBC Distribution Width 13.9 % (11.5-14.5); Red Blood Cell (RBC) Count 3.33 10x6/uL (4.32-5.72); White Blood Cell (WBC) Count 15.1 10x3/uL (3.5-10.5)
[2022-01-02 05:48] LABS: Anion Gap 14 mmol/L (10-20); BUN (Urea Nitrogen) 13 mg/dL (8.4-25.7); Calc. Creatinine Clearance 176 mL/min (70-130); Calcium 8.3 mg/dL (7.8-10.44); Carbon Dioxide 23 mmol/L (23-31); Chloride 111 mmol/L (98-107); Glucose 89 mg/dL (80-115); Sodium 144 mmol/L (136-145)
[2022-01-02] MEDS: Losartan Potassium 50 MG TAB PO SCH (10:12)
[2022-01-02] MEDS: Aspirin 81 mg Enteric Coated Tablet PO SCH (10:12)
[2022-01-02] MEDS: Amlodipine 10 MG TAB PO SCH (10:12)
[2022-01-02] MEDS: Oxybutynin 5 MG TAB PO SCH (10:12)
[2022-01-02] MEDS: Clopidogrel Bisulfate 75 MG TAB PO SCH (10:12)
[2022-01-02] MEDS: Cefepime 1 GM in Sodium Chloride 0.9% 100 ML IVPB SCH ×2 (10:13→20:00)
[2022-01-02] MEDS: Atorvastatin Calcium 40 MG TAB PO SCH (20:00)
[2022-01-03 05:26] LABS: #Basophils 0.1 10x3/uL (0.0-0.2); #Eosinphils 0.2 10x3/uL (0.0-0.5); %Basophils 0.3 % (0.0-2.0); %Eosinophils 1.2 % (0.0-6.0); %Lymphocytes 19.7 % (18.0-47.0); %Monocytes 6.1 % (0.0-10.0); Hemoglobin 9.5 g/dL (13.5-17.5); Mean Corpuscular Hemoglobin 27.8 pg (27.0-33.0); Mean Corpuscular Volume 86.8 fl (81.2-95.1); Mean Platelet Volume 9.4 fl (7.4-10.4); Platelet Count 368 10x3/uL (150-450); RBC Distribution Width 13.9 % (11.5-14.5); Red Blood Cell (RBC) Count 3.42 10x6/uL (4.32-5.72); White Blood Cell (WBC) Count 15.5 10x3/uL (3.5-10.5)
[2022-01-03 05:34] LABS: Anion Gap 13 mmol/L (10-20); BUN (Urea Nitrogen) 13 mg/dL (8.4-25.7); Calc. Creatinine Clearance 176 mL/min (70-130); Calcium 8.3 mg/dL (7.8-10.44); Carbon Dioxide 23 mmol/L (23-31); Chloride 111 mmol/L (98-107); Glucose 93 mg/dL (80-115); Potassium 3.8 mmol/L (3.5-5.1); Sodium 143 mmol/L (136-145)
[2022-01-03] MEDS: Oxybutynin 5 MG TAB PO SCH (09:01)
[2022-01-03] MEDS: Scopolamine 1.5 mg/72 hour Patch TD SCH (09:01)
[2022-01-03] MEDS: Losartan Potassium 50 MG TAB PO SCH (09:01)
[2022-01-03] MEDS: Cefepime 1 GM in Sodium Chloride 0.9% 100 ML IVPB SCH (09:02)
[2022-01-03] MEDS: Clopidogrel Bisulfate 75 MG TAB PO SCH (09:02)
[2022-01-03] MEDS: Aspirin 81 mg Enteric Coated Tablet PO SCH (09:02)
[2022-01-03] MEDS: Amlodipine 10 MG TAB PO SCH (09:02)
[2022-01-03 15:49] VITALS: BP 134/81; TEMP 98
== END 2022-01-03 16:17 | DRG 871 ==
LOC: CSHERS 08:09 → CSHIMCU 09:54 → CSHTELE 12-30 17:53
PROVIDERS: ADMIT Hospitalist; ATTEND Hospitalist
PROC: 0DH67UZ Insertion of Feeding Device into Stomach, Via Natural or Artificial Opening (ICD-10-PCS; principal; 2021-12-27)
PROC: 3E043XZ Introduction of Vasopressor into Central Vein, Percutaneous Approach (ICD-10-PCS; 2021-12-27)
PROC: 0BH18EZ Insertion of Endotracheal Airway into Trachea, Via Natural or Artificial Opening Endoscopic (ICD-10-PCS; 2021-12-27)
PROC: 5A1935Z Respiratory Ventilation, Less than 24 Consecutive Hours (ICD-10-PCS; 2021-12-27)
PROC: 03HY32Z Insertion of Monitoring Device into Upper Artery, Percutaneous Approach (ICD-10-PCS; 2021-12-27)
PROC: 02H633Z Insertion of Infusion Device into Right Atrium, Percutaneous Approach (ICD-10-PCS; 2021-12-27)
PROC: B548ZZA Ultrasonography of Superior Vena Cava, Guidance (ICD-10-PCS; 2021-12-27)
PROC: 3E0G76Z Introduction of Nutritional Substance into Upper GI, Via Natural or Artificial Opening (ICD-10-PCS; 2021-12-27)
PROC: 5A0945A Assistance with Respiratory Ventilation, 24-96 Consecutive Hours, High Flow/Velocity Cannula (ICD-10-PCS; 2021-12-28)
DX: A41.9 Sepsis, unspecified organism (principal); J69.0 Pneumonitis due to inhalation of food and vomit; J96.01 Acute respiratory failure with hypoxia; N17.0 Acute kidney failure with tubular necrosis; R65.21 Severe sepsis with septic shock; I69.351 Hemiplegia and hemiparesis following cerebral infarction affecting right dominant side; N39.0 Urinary tract infection, site not specified; K21.9 Gastro-esophageal reflux disease without esophagitis; K59.00 Constipation, unspecified; N40.0 Benign prostatic hyperplasia without lower urinary tract symptoms; E11.9 Type 2 diabetes mellitus without complications; N31.9 Neuromuscular dysfunction of bladder, unspecified; R13.12 Dysphagia, oropharyngeal phase; F32.A Depression, unspecified; G47.00 Insomnia, unspecified; E78.5 Hyperlipidemia, unspecified; I10 Essential (primary) hypertension; Z20.822 Contact with and (suspected) exposure to COVID-19; I69.320 Aphasia following cerebral infarction; I69.322 Dysarthria following cerebral infarction; Z87.440 Personal history of urinary (tract) infections; Z88.2 Allergy status to sulfonamides; Z88.8 Allergy status to other drugs, medicaments and biological substances; Z88.1 Allergy status to other antibiotic agents; Z79.899 Other long term (current) drug therapy; Z79.82 Long term (current) use of aspirin; Z74.01 Bed confinement status; Z79.02 Long term (current) use of antithrombotics/antiplatelets
CPT/HCPCS: 31500; 36415; 36416; 36556; 36600; 71045; 74018; 74230; 80048; 80053; 80202; 81001; 82805; 83605; 83735; 84100; 84145; 85025; 85049; 85300; 85362; 85379; 85384; 85610; 85730; 86140; 87040; 87070; 87077; 87086; 87149; 87186; 87205; 93005; 93010; 94003; 94640; 94760; 96361; 96365; 96367; J0282; J0360; J0692; J1940; J2704; J3010; J3370; J3475; J3490; J7030; J7050; J7999; U0002

== ENCOUNTER 2024-01-11 10:37 | Outpatient (CLI) | payer MEDICARE, MEDICAID | END 2024-01-11 10:38 | disposition home or self-care (01) | LOC: CSHCT 10:37 | PROVIDERS: ATTEND Urology | DX: N28.1 Cyst of kidney, acquired (principal); N28.89 Other specified disorders of kidney and ureter; K63.89 Other specified diseases of intestine; K40.90 Unilateral inguinal hernia, without obstruction or gangrene, not specified as recurrent | CPT/HCPCS: 74178 ==

== ENCOUNTER 2024-01-25 06:03 | Emergency (ER) | payer MEDICARE, MEDICAID ==
[2024-01-25] MEDS ORDERED: Cefepime 2 GM VIAL ONE ×2 (07:13→07:16)
[2024-01-25] MEDS ORDERED: VANCOMYCIN 2 GRAM/400 ML BAG 2 GM in Premix 1 BAG IVPB SCH (07:30)
[2024-01-25 07:39] LABS: #Basophils 0.02 10x3/uL (0.0-0.2); #Monocytes 0.39 10x3/uL (0.0-1.1); #Neutrophils 16.17 10x3/uL (1.5-8.4); %Basophils 0.1 % (0.0-2.0); %Lymphocytes 3.3 % (18.0-47.0); %Monocytes 2.3 % (0.0-10.0); %Neutrophils 93.8 % (40.0-75.0); Hemoglobin 11.3 g/dL (13.5-17.5); Mean Corpuscular HGB CONC 33.2 g/dL (32.0-36.0); Mean Corpuscular Hemoglobin 29.8 pg (27.0-33.0); Mean Corpuscular Volume 89.7 fL (81.2-95.1); Mean Platelet Volume 10.1 fL (7.4-10.4); Platelet Count 174 10x3/uL (150-450); RBC Distribution Width 14.7 % (11.5-14.5); Red Blood Cell (RBC) Count 3.79 10x6/uL (4.32-5.72); White Blood Cell (WBC) Count 17.2 10x3/uL (3.5-10.5)
[2024-01-25 08:06] LABS: ALT (SGPT) 323 U/L (8-55); AST (SGOT) 212 U/L (5-34); Albumin 3.3 g/dL (3.4-4.8); Alkaline Phosphatase 91 U/L (40-110); Anion Gap 13 mmol/L (10-20); BUN (Urea Nitrogen) 38 mg/dL (8.4-25.7); Bilirubin, Total 0.2 mg/dL (0.2-1.2); Calc. Creatinine Clearance 0 mL/min (70-130); Calcium 8.8 mg/dL (7.8-10.44); Carbon Dioxide 21 mmol/L (23-31); Chloride 109 mmol/L (98-107); Estimated GFR 49; Glucose 95 mg/dL (80-115); Magnesium 1.8 mg/dL (1.6-2.6); Protein, Total 7.3 g/dL (5.8-8.1); Sodium 136 mmol/L (136-145)
[2024-01-25 08:07] LABS: Troponin I Less than 0.010 ng/mL (< 0.028)
[2024-01-25 08:10] LABS: Critical Call Chemistry NUR.DG3@0800; Potassium 7.4 mmol/L (3.5-5.1)
[2024-01-25 08:43] LABS: Anion Gap 15 mmol/L (10-20); BUN (Urea Nitrogen) 38 mg/dL (8.4-25.7); Calc. Creatinine Clearance 0 mL/min (70-130); Calcium 8.8 mg/dL (7.8-10.44); Carbon Dioxide 17 mmol/L (23-31); Chloride 111 mmol/L (98-107); Estimated GFR 50; Glucose 92 mg/dL (80-115); Sodium 135 mmol/L (136-145)
[2024-01-25 09:08] LABS: Potassium 7.5 mmol/L (3.5-5.1)
[2024-01-25] MEDS ORDERED: Calcium Chloride 1 GM/10 ML Abboject SYRINGE ONE (10:12)
[2024-01-25] MEDS ORDERED: Calcium Gluc 4.6 MEQ/10 ML (100 MG/ML) ONE (10:13)
[2024-01-25] MEDS ORDERED: Insulin Regular 300 UNITS/3 ML VIAL ONE (10:13)
[2024-01-25] MEDS ORDERED: Dextrose 50% Abboject 50 ML SYRINGE SLOW IVP SCH (10:30)
[2024-01-25 23:49] LABS: Campy jejuni + coli by PCR Negative (Negative); STEC Shiga Toxin 1+2 Negative (Negative); Salmonella spp. by PCR Negative (Negative); Shigella spp + EIEC by PCR Negative (Negative)
== END 2024-01-25 13:16 | disposition short-term general hospital (02) ==
LOC: CSHERS 06:03
DX: A41.9 Sepsis, unspecified organism (principal); J18.9 Pneumonia, unspecified organism; E87.5 Hyperkalemia; I95.9 Hypotension, unspecified; Z55.6 Problems related to health literacy; I10 Essential (primary) hypertension; E78.5 Hyperlipidemia, unspecified; Z79.899 Other long term (current) drug therapy
CPT/HCPCS: 51702; 71045; 80048; 80053; 83605; 83735; 83880; 84484; 85025; 87040; 87324; 87449; 87505; 93005; 96374; 96375; 99285; J0612; J0692; J3370; J7999; 36415; J1815